=== PATIENT | female | born 1995 | race Caucasian/White ===

== ENCOUNTER 2019-12-09 16:47 | Emergency (ER) | payer OTHER, SELFPAY ==
[2019-12-09 16:58] VITALS: BP 156/108; PULSE 120; RESP 18; TEMP 36.9; O2SAT 100
--- NOTE | 2019-12-09 17:00 | ED.FEMALEGU ---
HPI - Female Genitourinary General Chief complaint: Urogenital-Female Stated complaint: strong smell with urination/urgency to urinate Time Seen by Provider: 12/09/19 17:07 Source: patient Mode of arrival: ambulatory Limitations: no limitations History of Present Illness HPI Narrative: Juanita Michaels is a 24 yo female with no PMH who comes to express care with foul-smelling urine, urgency, and frequency x2 weeks. Also elevated although is afebrile-denies abdominal pain, no bladder spasm Patient states she is pretty healthy has had a UTI but last January took antibiotics and it went away Related Data Home Medications Medication Instructions Recorded Confirmed norethindrone-e.estradiol-iron 1 tablet PO DAILY 12/09/19 12/09/19 [] Allergies Allergy/AdvReac Type Severity Reaction Status Date / Time No Known Allergies Allergy Verified 12/09/19 17:16 Review of Systems Review of Systems: Narrative: CONSTITUTIONAL: Denies fever, chills, sweats. EYES: Denies visual changes, redness, discharge. ENT: Denies rhinorrhea, congestion, sore throat, otalgia. CARDIOVASCULAR: Denies chest pain, palpitations, edema. RESPIRATORY: Denies dyspnea, wheezing, cough GASTROINTESTINAL: Denies abdominal pain, nausea, vomiting, diarrhea. GENITOURINARY: Has dysuria and frequency, hematuria, no abnormal discharge SKIN: Denies rash or itching. NEUROLOGIC: Denies numbness, or focal weakness. PSYCHIATRIC: Denies anxiety or depression. PMFSH Past Medical History Medical History No active medical problems Family History Family History (Updated 12/09/19 @ 17:13 by Rozina Ceron CNP) Other Hypertension Social History Social History (Updated 12/09/19 @ 17:14 by Rozina Ceron CNP) Smoking status: Never smoker Alcohol intake: current Living arrangements: with friend(s) Comments At time of signature, I agree with nursing past medical, surgical, social and family history. There is no relevant family history pertinent to the presenting complaint. Blood pressure is elevated and needs to be followed up by PCP given referrals for primary care physician Exam Narrative: Exam Narrative: GENERAL: This is a well-nourished, well-developed patient, in mild distress. HEAD: normocephalic, atraumatic. EYES: Sclera clear/white. Vision is grossly intact. EARS: External ears normal, Hearing grossly intact. NOSE: External nose normal no rhinorrhea. THROAT: Mucous membranes moist, NECK: Neck supple, CARDIOVASCULAR: Regular rate and rhythm without murmurs, gallops, or rubs. RESPIRATORY: Clear to auscultation. Breath sounds equal bilaterally. No wheezes, rales, or rhonchi. GASTROINTESTINAL: Abdomen soft, no tenderness SKIN: warm, intact with no suspicious lesions or rash, good texture and turgor. NEURO: awake, alert, and oriented to person, place and time. There were no obvious focal neurologic abnormalities. Steady gait EXTREMITIES: Normal range of motion. BACK: Nontender without deformity Course Course Emergency Course: UA dip is positive for nitrates-sent for culture Started on cephalexin, given directions to increase water intake, follow uo with pcp Vital Signs Vital signs: Vital Signs Temperature 98.4 F 12/09/19 16:58 Pulse Rate 120 H 12/09/19 16:58 Respiratory Rate 18 12/09/19 16:58 Blood Pressure 156/108 H 12/09/19 16:58 Pulse Oximetry 100 12/09/19 16:58 Temperature 98.4 F 12/09/19 16:58 Pulse Rate 100 12/09/19 17:09 Respiratory Rate 18 12/09/19 16:58 Blood Pressure 142/92 H 12/09/19 17:09 Pulse Oximetry 100 12/09/19 16:58 MDM - Female Genitourinary Differential Diagnosis Differential diagnosis: Likely urinary tract infection, cystitis and other Lab Data Labs: Urine Glucose Negative Reference Range: Negative Urine Bilirubin Negative Reference Range: Negative Urine
[2019-12-09 17:09] VITALS: BP 142/92; PULSE 100
== END 2019-12-09 17:25 | disposition home or self-care (01) ==
PROVIDERS: Emergency Provider Nurse Practitioner
DX: N30.00 Acute cystitis without hematuria (principal)
CPT/HCPCS: 81003; 87077; 87086; 87088; 87186; 99213; G0463